=== PATIENT | female | born 1970 | race African-American/Black ===

== ENCOUNTER 2016-06-01 11:36 | Emergency (ER) | payer OTHER ==
--- NOTE | ~2016-06-01 | CR72 ---
[facility] A Service of [facility] RADIOLOGY TEXT RESULTS PATIENT: DEVIN SLATER LOCATION: [facility] : 66 UNIT #: [id number] AGE: [address]: Dane Carter DO SEX: F ORDER DR: [id number] [facility] [place]. [place], [place] [address] [id number] E MR#: [id number] Acc #: [id number] NAME: DEVIN SLATER : 1970 SEX: F STUDY DATE/TIME: 06/01/2016 11:02 UNIT: [facility] ROOM: STUDY DESCRIPTION: CR Chest Single View Portable Attending Physician: Dane Carter D.O. Ordering Physician: Dane Carter D.O. Primary Care Physician: No Primary Care Physician MEDICAL IMAGING REPORT This report is preliminary unless electronic signature is present EXAM AP portable chest. DATE 06/01/2016 HISTORY 46-year-old female body aches and nausea today. COMPARISON None. FINDINGS A single AP portable view of the chest shows both lungs to be clear. The heart is normal in size. The mediastinal contour is normal. No significant bone abnormalities are seen. IMPRESSION Normal portable chest. Dictated by... Zahra Willis M.D. THIS IS AN ELECTRONICALLY VERIFIED REPORT Zahra Willis M.D. at 06/02/2016 7:03 AM [facility]/judson TD: 06/01/2016 13:35 JOB #: [id number] MEDICAL IMAGING REPORT [facility] A Service of [facility] RADIOLOGY TEXT RESULTS PATIENT: DEVIN SLATER LOCATION: [facility] : 66 UNIT #: [id number] AGE: [address]: Dane Carter DO SEX: F ORDER DR: Page 1 of 1 COPY
--- NOTE | ~2016-06-01 | EKG ---
PATIENT: DEVIN SLATER UNIT #: [id number] Ventricular Rate: 64 BPM Atrial Rate: 64 BPM P-R Interval: 128 ms QRS Duration: 84 ms Q-T Interval: 398 ms QTC Calculation(Bezet): 410 ms P Tasley: 8 degrees Calculated R Tasley: 5 degrees Calculated T Tasley: 2 degrees Diagnosis Line: Normal sinus rhythm Diagnosis Line: Nonspecific T wave abnormality Diagnosis Line: Abnormal ECG Diagnosis Line: No previous ECGs available Diagnosis Line: Confirmed by APOLLO DE LEÓN MD ([id number]) on 06/02/2016 Diagnosis Line: 7:56:03 PM INTERPRETING MD: GENET ELLER
[2016-06-01 11:26] LABS: BASOPHIL% 0.4 % (0-2.5); EOSINOPHIL# 0.3 X10e3 (0-0.7); EOSINOPHIL% 5.5 % (0.0-7.0); HEMATOCRIT 38.3 % (35.0-45.0); HEMOGLOBIN 12.6 gm/dL (12.0-16.0); LYMPHOCYTE# 1.9 X10e3 (1.0-3.5); LYMPHOCYTE% 32.8 % (17.0-45.0); MEAN CORPUSCULAR HEMOGLOBIN 27.6 PG (28-34); MEAN CORPUSCULAR HGB CONC 32.8 g/dL (30-36); MEAN PLATELET VOLUME 10.6 FL (6.5-11.5); MONOCYTE# 0.4 X10e3 (0-1.0); MONOCYTE% 6.3 % (3.0-12.0); NEUTROPHIL# 3.1 X10e3 (1.5-7.1); PLATELET COUNT 161 X10e3 (140-420); RED BLOOD COUNT 4.56 X10e (3.90-5.30); WHITE BLOOD COUNT 5.7 X10e3 (4.0-10.5)
[2016-06-01 11:30] LABS: POC - CKMB <1.0 ng/mL (0.0-7.9); POC - TROPONIN <0.05 ng/mL (<=0.05)
[2016-06-01 11:33] LABS: DIFF IND NO
[~2016-06-01 11:36] MED LIST: BP MED; THYROID MED
[2016-06-01 11:55] LABS: ALBUMIN SERUM 3.7 g/dL (3.5-5.0); BILIRUBIN, DIRECT 0.1 mg/dL (0.0-0.2); BILIRUBIN,INDIRECT 0.6 mg/dL (0.0-0.9); BILIRUBIN,TOTAL 0.7 mg/dL (0.2-2.0); BUN/CREATININE RATIO 17.14; CALCIUM SERUM 8.9 mg/dL (8.4-10.2); CREATININE SERUM 0.7 mg/dL (0.6-1.4); GLOM FILT RATE Estimated 118.7 mL/min (>60); POTASSIUM 3.6 mmol/L (3.5-5.1); PROTEIN TOTAL SERUM 7.2 g/dL (6.0-8.3)
[2016-06-01 12:14] LABS: URINE SOURCE CLEAN CATCH
[2016-06-01 12:19] LABS: URINE APPEARANCE CLEAR; URINE BILIRUBIN NEG (NEG); URINE BLOOD NEG (NEG); URINE COLOR YELLOW; URINE GLUCOSE NEG (NEG); URINE KETONE NEG (NEG); URINE LEUKOCYTE ESTERASE NEG (NEG); URINE NITRATE NEG (NEG); URINE PH 6.5 (5-8); URINE PROTEIN NEG (NEG); URINE SPECIFIC GRAVITY 1.022 (1.003-1.035); URINE UROBILINOGEN 0.2 MG/DL (NEG)
[2016-06-01 12:24] LABS: CULTURE INDICATED? NO
[2016-06-01 13:34] LABS: POC - CKMB <1.0 ng/mL (0.0-7.9); POC - TROPONIN <0.05 ng/mL (<=0.05)
== END 2016-06-01 14:42 | disposition left against medical advice (07) ==
LOC: CED 11:36
PROVIDERS: Emergency Medicine
DX: R42 Dizziness and giddiness (principal); R07.9 Chest pain, unspecified; I10 Essential (primary) hypertension; E03.9 Hypothyroidism, unspecified
CPT/HCPCS: 36415; 71010; 80048; 80076; 81003; 82553; 83690; 84484; 84703; 85025; 85379; 93005; 99284

== ENCOUNTER → 2016-06-05 17:40 | Emergency (ER) | payer OTHER | END | disposition left against medical advice (07) | LOC: CED 17:40 | DX: Z53.21 Procedure and treatment not carried out due to patient leaving prior to being seen by health care provider (principal) | CPT/HCPCS: 84703 ==